=== PATIENT | male | born 1995 | race Caucasian/White ===

== ENCOUNTER 2021-01-14 14:13 | Emergency (ER) | payer SELFPAY ==
[~2021-01-14] VITALS: Ht 182.9 cm; Wt 113.4 kg
[2021-01-14 14:48] VITALS: BP_SYST 140
[2021-01-14] MEDS ORDERED: MORPHINE 4 MG INJ. 4 MG/ML VIAL IM ONE (15:15)
[2021-01-14 15:21] VITALS: BP_SYST 141
== END 2021-01-14 15:24 | disposition home or self-care (01) ==
LOC: SED 14:13
DX: M24.411 Recurrent dislocation, right shoulder (principal); W21.06XA Struck by volleyball, initial encounter; Y93.68 Activity, volleyball (beach) (court); Y92.89 Other specified places as the place of occurrence of the external cause; Y99.8 Other external cause status
CPT/HCPCS: 23650; 96372; 99284; J2270; 99283